=== PATIENT | male | born 1990 | race American Indian/Alaskan Native ===

== ENCOUNTER 2024-05-04 11:48 | Emergency (ER) | payer OTHER | END 2024-05-04 13:19 | disposition other institution (70) | LOC: FB.ED 11:48 | DX: S05.8X1A Other injuries of right eye and orbit, initial encounter (principal); H53.131 Sudden visual loss, right eye; Z90.49 Acquired absence of other specified parts of digestive tract; W22.8XXA Striking against or struck by other objects, initial encounter | CPT/HCPCS: 99284 ==